=== PATIENT | male | born 1950 | race Caucasian/White ===

== ENCOUNTER 2017-03-03 19:51 | Emergency (ER) | payer OTHER ==
[~2017-03-03] VITALS: Ht 177.8 cm; Wt 76.7 kg
[2017-03-03] MEDS ORDERED: LIDOCAINE 2% JEL UROJET 10 ML MM ONE ×2 (20:00→20:30)
--- NOTE | 2017-03-03 20:08 | NUR ---
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 PT AOX4 RR EVEN AND UNLABORED. NO SOB NOTED. NAD NOTED. NO NVD AT THIS TIME. PT NOT DIAPHORETIC. PT GOWNED WAITING FOR MD DELGADO.
--- NOTE | 2017-03-03 20:55 | NUR ---
Patient discharged to home in stable condition. Written and verbal after care instructions given. Patient verbalizes understanding of instruction. ambulatory with a steady gait. pt discharge with leg bag per dr. calle.
[2017-03-03 20:56] VITALS: BP 158/86
== END 2017-03-03 20:56 | disposition home or self-care (01) ==
LOC: ER 19:57
DX: R33.9 Retention of urine, unspecified (principal); I10 Essential (primary) hypertension; Z98.890 Other specified postprocedural states; Z96.641 Presence of right artificial hip joint
CPT/HCPCS: A4606; J3490; Z7610